=== PATIENT | female | born 1995 | race Caucasian/White ===

== ENCOUNTER 2021-07-08 10:03 | Emergency (ER) | payer OTHER, SELFPAY ==
--- NOTE | 2021-07-08 10:30 | ED.URI ---
HPI - URI/Sore Throat General Chief Complaint: Upper Respiratory Infection Stated Complaint: cough,chest pain when breathing Time Seen by Provider: 07/08/21 10:31 Source: patient and RN notes reviewed Mode of arrival: ambulatory Limitations: no limitations History of Present Illness HPI Narrative: Eloise is a 26-year-old female patient who ambulated into the [facility] today. Patient states she has been treated for pneumonia by her primary care. Patient states she had a Z-Papi for upper respiratory infection last Saturday she was put on cefdinir. She complains of pain under her left breast and back pain when taking a deep breath. She has an autoimmune disorder called FCA. And she takes Ilaris every 3 months. Patient is also taking Tessalon Perles for the cough and states they work well for her. Patient states she feels much better after last Saturday it is the pain with deep inspiration that she is concerned about MD elicited complaint: cough Related Data Home Medications Medication Instructions Recorded Confirmed canakinumab (PF) [Ilaris (PF)] 150 SUBCUT [id number] 07/08/21 Allergies Allergy/AdvReac Type Severity Reaction Status Date / Time amoxicillin Allergy Unknown Verified 04/30/16 03:05 clavulanic acid Allergy Unknown Verified 04/30/16 03:05 sulfamethoxazole Allergy Unknown Unknown Verified 07/08/21 10:37 [From ] trimethoprim [From ] Allergy Unknown Unknown Verified 07/08/21 10:37 Review of Systems Review of Systems: CONSTITUTIONAL: Denies body aches, fever, chills, or sweats. EYES: Denies visual changes, redness, or discharge. ENT: Denies rhinorrhea, congestion, sore throat, or otalgia. CARDIOVASCULAR: +chest pain, denies palpitations, or edema. RESPIRATORY: + cough or dyspnea. GASTROINTESTINAL: Denies abdominal pain, nausea, vomiting, or diarrhea. GENITOURINARY: Denies dysuria or hematuria. SKIN: Denies rash, itching, or wounds. MUSCULOSKELETAL: Denies back pain, joint pain, or myalgia. NEUROLOGIC: Denies headache, numbness, tingling, or weakness. PSYCH: Denies depression or anxiety. All systems reviewed & are unremarkable except as noted in HPI and below PMFSH Comments At time of signature, I have reviewed and agree with nursing past medical, surgical, social and family history unless otherwise noted. Please see nursing chart for further information. There is no relevant family history pertinent to the presenting complaint Exam Narrative: GENERAL: Well-appearing, well-nourished, and in no acute distress. HEAD: Normocephalic, atraumatic. EYES: EOMI. No redness or drainage. Conjunctivae normal. ENT: Mucous membranes pink and moist. Nares clear. No rhinorrhea. TMs normal bilaterally. Throat without erythema or edema. 3-4+ tonsils are noted. Uvula midline. NECK: Normal AROM. Supple. No lymphadenopathy. CHEST: No respiratory distress. Clear to auscultation. MUSCULOSKELETAL: No bony tenderness. EXTREMITIES: Normal range of motion. No edema. SKIN: Warm, dry, no rash. Capillary refill normal. Normal skin turgor. NEURO: No focal deficits. Alert and oriented x3. Gait steady. PSYCH: Normal affect. No signs of depression or anxiety. Course Course Emergency Course: Patient is currently been treated for left lower lobe pneumonia with cefdinir. Patient states she is doing much better. Patient complains of pain with deep inspiration. Patient had pneumonia last March as well developed same symptoms of pleurisy. She was put on a Dosepak and anti-inflammatories and did well. Level of Care: [facility] Visit MDM - URI/Sore Throat MDM Narrative Medical decision making narrative: Patient will be diagnosed with pleurisy. Patient has pain with deep inspiration. Patient's lungs are clear. Patient will be treated with anti-inflammatories and a Medrol Dosepak. Patient to follow-up with her primary care doctor as scheduled next week. Differential Diagnosis Differential diagnosis: Likely up
[2021-07-08 10:34] VITALS: BP 143/98; PULSE 109; RESP 18; TEMP 36.9; O2SAT 100
== END 2021-07-08 10:50 | disposition home or self-care (01) ==
PROVIDERS: Emergency Provider Nurse Practitioner Family
DX: R09.1 Pleurisy (principal); M04.2 Cryopyrin-associated periodic syndromes
CPT/HCPCS: 99213; G0463

== ENCOUNTER 2024-06-03 16:55 | Emergency (ER) | payer BC, SELFPAY ==
--- NOTE | ~2024-06-03 | XR_ITS ---
XR chest 2V Ordering provider: Marcella Acosta APRN History: 29 years Female with . cough dizzy . Comparison: None. FINDINGS: MEDIASTINUM: The cardiac silhouette is not enlarged. LUNGS: No infiltrates, effusions or pneumothorax. OTHER: No free air under the diaphragm. IMPRESSION: No acute cardiopulmonary pathology. Reviewed, dictated and finalized at location A. BOARD MAN
[2024-06-03 17:02] VITALS: BP 155/77; PULSE 98; RESP 16; TEMP 36.8; O2SAT 99
--- NOTE | 2024-06-03 17:14 | ED_ITS ---
HPI - URI/Sore Throat General Chief Complaint: Dizziness Stated Complaint: dizzyness Time Seen by Provider: 06/03/24 17:14 Source: patient, RN notes reviewed and old records reviewed Mode of arrival: ambulatory Limitations: no limitations History of Present Illness HPI Narrative: patient presents with multiple vague complaints. She reports that on she began with some neck pain and body aches, feeling of being off . She now reports a spinning sensation and a heavy sensation of her head. She has not been taking anything for her symptoms. Symptoms have not caused her to fall. 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 She reports she feels as though she is spinning, movement does not seem to affect her symptoms. She does report that she is much more tired than normal. She denies any injury or trauma. She voices no other concerns or complaints at this time. Related Data Home Medications Medication Instructions Recorded Confirmed canakinumab (PF) 150 mg/mL 150 mg subcut [id number] 07/08/21 06/03/24 subcutaneous solution (Ilaris (PF)) semaglutide (weight loss) 0.5 0.5 mg subcut WEEKLY 06/03/24 06/03/24 mg/0.5 mL subcutaneous pen injector Allergies Allergy/AdvReac Type Severity Reaction Status Date / Time clavulanic acid Allergy Mild Hives Verified 06/03/24 17:28 amoxicillin AdvReac Mild Hives Verified 06/03/24 17:28 sulfamethoxazole AdvReac Mild Flushing Verified 06/03/24 17:28 [From ] trimethoprim [From ] AdvReac Mild Flushing Verified 06/03/24 17:28 Review of Systems Review of Systems: All systems reviewed & are unremarkable except as noted in HPI and below Constitutional: Constitutional: Reports no additional constitutional complaints and Reports lethargy ENT: Reports system reviewed and no additional complaints, except as documented, Reports as per HPI and Reports dizziness Cardiovascular: Cardiovascular: Reports no additional cardiovascular complaints Respiratory: Respiratory: Reports no additional respiratory complaints Gastrointestinal: Gastrointestinal: Reports no additional gastrointestinal complaints PMFSH Comments At the time of my signature, I reviewed and agree with the nursing past medical, surgical, social, and family history. There is no relevant family history pertinent to the patient complaint. Exam Const: General: cooperative, no acute distress, alert and awake Orientation/consciousness: oriented to person, oriented to place and oriented to time HENMT: Head: normal to inspection Ears: TM's normal bilaterally and EAC's normal Mouth: Yes moist mucous membranes Resp: Effort & Inspection: normal respiratory effort and able to speak in complete sentences Auscultation: clear to auscultation bilaterally, no crackles, no rales, no rhonchi and no wheezes Cardio: Palpation: normal PMI Rate: regular rate Rhythm: regular rhythm Heart sounds: S1 normal heart sound present and S2 normal heart sound present Neuro: General: oriented to person, oriented to place and oriented to time Cranial nerves: Yes CN's II-XII intact bilaterally Psych: Appearance: grossly normal Thought process: Normal thought process present Insight: Good insight present (Psych) Judgement: Good judgement present (Psych) Course Course Level of Care: [facility] Visit Vital Signs Vital signs: Vital Signs Temperature 98.3 F 06/03/24 17:02 Pulse Rate 98 06/03/24 17:02 Respiratory Rate 16 06/03/24 17:02 Blood Pressure 155/77 H 06/03/24 17:02 Pulse Oximetry 99 06/03/24 17:02 Oxygen Delivery Room Air 06/03/24 17:02 Temperature 98.3 F 06/03/24 17:02 Pulse Rate 98 06/03/24 17:02 Respiratory Rate 16 06/03/24 17:02 Blood Pressure 155/77 H 06/03/24 17:02 Pulse Oximetry 99 06/03/24 17:02 Oxygen Delivery Room Air 06/03/24 17:02 Reviewed MDM - URI/Sore Throat MDM Narrative Medical decision making narrative: patient works as a nurse, communicable illnesses prevalent in the community right now such as pneumonia, COVID, flu have been ruled out. She is able to perform ADLs and go to work despite being dizzy. She is observed ambulating with steady gait. Blood glucose is within normal limits. Patient agrees to try meclizine, if symptoms worsen or do not improve she agrees to go to emergency department immediately. Follow up primary care provider. Discharge instructions reviewed with patient, as well as provided in writing per nursing staff. The instructions also include specific and strict return/GO TO THE ER as well as f/u information. All questions have been answered, and the patient deny any further questions with discharge and discharge plan. Some parts of this dictation were generated by voice recognition software and may contain typographical and/or grammatical inaccuracies. Differential Diagnosis Differential diagnosis: Likely otitis media, viral infection and other (Dizziness, vertigo) Medical Records Attestation: I reviewed the patient's medical records. Lab Data Labs: negative flu, negative COVID Imaging Data My impression: Negative Radiologist's impression: [address] [address] XRay Report Signed Patient: Cele Padilla : 1995 MR#: [id number] Age: 29 Acct:[id number] Loc: [facility] ADM Date: 06/03/24Attending Dr: Ordering Physician: Marcella Acosta FNP Date of Service: 06/03/24 Procedure(s): XR chest 2V Accession Number(s): [id number] cc: Marcella Acosta FNP; RADIO REPAIRMAN PHYSICIAN~ XR chest 2V Ordering provider: Marcella Acosta APRN History: 29 years Female with . cough dizzy . Comparison: None. FINDINGS: MEDIASTINUM: The cardiac silhouette is not enlarged. LUNGS: No infiltrates, effusions or pneumothorax. OTHER: No free air under the diaphragm. IMPRESSION: No acute cardiopulmonary pathology. Reviewed, dictated and finalized at location A. ATRIC INTENSIVE PHYSICIAN Dictated By: Jony Banerjee MD 06/03/241807 Signed By: <Electronically signed by Jony Banereje MD in OV> 06/03/241807 Discharge Plan Discharge Clinical Impression: Dizziness Patient Disposition: Home, Self-Care Condition: Stable Instructions: Antibiotic Form, Dizziness (ED) Additional Instructions: take medications as prescribed. Follow-up with primary care provider emergency department immediately for new or worsening symptoms or current symptoms do not improve Patient Language: Bulgarian Prescriptions: New meclizine 50 mg tablet 50 mg PO TID PRN (Reason: dizziness) Qty: 30 0RF No Action Ilaris (PF) 150 mg/mL Solution 150 mg SUBCUT [id number] semaglutide (weight loss) 0.5 mg/0.5 mL Pen Injector 0.5 mg SUBCUT WEEKLY Rx Instructions: administer weeks 5 through 8 of therapy Follow-up/Referrals: PHYSICIAN,RADIO REPAIRMAN [Primary Care Provider] - Stand Alone Forms: Work/School Release IP Time of Disposition: 18:29
[2024-06-03 17:28] LABS: Glucose Point of Care 87 mg/dl (65-105)
[2024-06-03 17:43] LABS: EDINFLUASCREEN Negative (Negative); EDINFLUBSCREEN Negative (Negative)
[2024-06-03 17:44] LABS: EDCOVIDSCREEN Negative (Negative)
[2024-06-03 18:21] VITALS: BP 132/78
== END 2024-06-03 18:29 | disposition home or self-care (01) ==
PROVIDERS: Emergency Provider Nurse Practitioner Family
DX: R42 Dizziness and giddiness (principal); Z20.822 Contact with and (suspected) exposure to COVID-19
CPT/HCPCS: 71046; 82948; 87426; 87804; 99213; G0463

== ENCOUNTER 2024-08-04 14:46 | Outpatient (CLI) | payer BC, SELFPAY ==
--- NOTE | ~2024-08-04 | MR_ITS ---
EXAMINATION: MR brain/brain stem wo/w con DATE: 08/04/2024 15:20 INDICATION: Headache, unspecified. TECHNIQUE: Magnetic resonance imaging (MRI) of the brain and brainstem was performed without and with 17 mL MultiHance intravenous contrast. COMPARISON: None. FINDINGS: There is no intracranial hemorrhage, acute infarction, or abnormal intracranial mass lesion . The ventricles are normal in size. There is mild mucosal thickening in the paranasal sinuses. The o rbits are normal. The mastoid air cells are normal. IMPRESSION: 1. Normal brain. Reviewed, dictated and finalized at location A. R RESOURCE SPECIALIST IMPRESSION: 1. Normal brain.
== END 2024-08-04 14:47 | disposition home or self-care (01) ==
LOC: MICIMG 14:48
PROVIDERS: PCP Nurse Practitioner; Visit Provider Nurse Practitioner
DX: R51.9 Headache, unspecified (principal); H53.9 Unspecified visual disturbance; R42 Dizziness and giddiness
CPT/HCPCS: 70553; A9577

== ENCOUNTER 2024-10-30 13:13 | Outpatient (CLI) | payer BC, SELFPAY ==
--- OUTSIDE RECORDS SUMMARY | 2024-10-31 13:48 | XMS_ITS | Clinical Summary ---
Author Organization [facility] Address [address] [address] Care Team Providers Care Aquarium Tank Attendant Name Role Phone Ivory Broussard APRN-[facility] Primary Care Provider [phone] Source Comments [facility],non-owned Affiliates and Associated Physician Practices is amultiple site organization consisting of ambulatory clinics and hospital sitesin [place], [place], [place] and [place]. This disclosure is being madepursuant to the Care Everywhere program and may not contain all information available regarding this patient. Last updated 18.[facility] Allergies Active Allergy Reactions Criticality Noted Date Comments Amoxicillin-Pot Clavulanate Unknown 03/06/20 19 Augmentin Urticaria Medium 11/27/2017 Sulfamethoxazole W-Trimethoprim Rash Medium 11/2018 Medications * Be aware that medications may not be up to date on this document. Alwaysverify current medications with the patient. Canakinumab (ILARIS SC) Active diazePAM (Valium) 5 MG tablet TAKE 1 TABLET BY MOUTH EVERY 8 HOURS NEEDED FOR DIZZINESS 4 Active amitriptyline (Elavil) 10 MG tabletIndicatio ns:Ocular migraine,Dizzin ess,Vestibular migraine,Migrai ne with aura and without status migrainosus, not intractable Take 1 (one) tablet by mouth every evening 30 tablet 4 5 Active ISOtretinoin (ACCUTANE PO) 10/29/19 25 Discontinu ed(Tx Complete) Active Problems No known active problems Encounters Date Type Department Care Team Description 10/28/2024 8:00 AM CDT Office Visit [facility] - Neurology [address], [place] [address] Dennise Cowart APRN-CNP Ocular migraine (Primary Dx); Dizziness; Vestibular migraine; Migraine with aura and without status migrainosus, not intractable; Anxiety 10/28/2024 Travel 09/14/2024 Travel from Last 3 Months Family History Relation Name Status Comments Father Alive Mother Alive Social History Tobacco Use Types Packs/Day Years Used Date Smoking Tobacco: Never Smokeless Tobacco: Never Alcohol Use Standard Drinks/Week Comments Not Currently 0 (1 standard drink = 0.6 oz pur e alcohol) Comments Unknown Sex and Gender Information Value Date Recorded Sex Assigned at Not on file Legal Sex Female 10:59 AM CDT Gender Identity Not on file Sexual Orientation Not on file Last Filed Vital Signs Vital Sign Reading Time Taken Comments Blood Pressure 132/84 10/28/2024 7:49 AM CDT Pulse 79 10/28/2024 7:49 AM CDT Temperature 36.8 C (98.2 F) 11/27/2017 12:00 PM CDT Respiratory Rate 18 11/27/2017 12:00 PM CDT Oxygen Saturation 98% 10/28/2024 7:49 AM CDT Inhaled Oxygen Concentration - - Weight 80.3 kg (177 lb) 10/28/2024 7:49 AM CDT Height 170.2 cm (5' 7 ) 10/28/2024 7:49 AM CDT Body Mass Index 27.72 10/28/2024 7:49 AM CDT Plan of Treatment Upcoming Encounters Date Type Department Care Team (Late st Contact Info) Description 03/19/2025 9:00 AM CDT Office Visit [facility] - Neurology [facility] [place] [address] Dennise Cowart APRN-CNP [address] [place] [address] [place] [address] Health Maintenance Due Date Last Done Comments HIV SCREENING 2012 HEPATITIS C SCREENING 05/19/2015 DTAP/TDAP/TD VACCINES (1 - Tdap) 2016 HEPATITIS B VACCINE (1 of 3 - 19+ 3-dose series) 2016 COVID-19 VACCINE ( - 2023- season) 2024 08/09/2020, 07/12/2020 DEPRESSION SCREENING 07/01/2024 INFLUENZA VACCINE (Season Ended) 2025 03/25/2021, 03/21/2019, 03/29/2018, Additional history exists PAP SMEAR 09/28/2025 09/28/2022 ZOSTER VACCINE (1 of 2) 2047 HIB VACCINE Aged Out No longer eligi ble based on patient's age to complete this topic HPV VACCINE Aged Out No longer eligi ble based on patient's age to complete this topic MENINGOCOCCAL (Group B) VACCINE SHARED DECISION-MAKING Aged Out No longer eligible based on patient's age to complete this topic MENINGOCOCCAL GROUPS A/C/Y/W VACCINE Aged Out No longer eligible based on patient's age to complete this topic PNEUMOCOCCAL VACCINE Aged Out No long er eligible based on patient's age to complete this topic Insurance [employer] Care Teams Aquarium Tank Attendant Relationship Specialty Start Date End Date Ivory Broussard, LIGHTING EQUIPMENT OPERATOR-SUPPLY CHAIN DIRECTOR [address] [place] [address] PCP - General Nurse Practitioner 09/14/24
--- OUTSIDE RECORDS SUMMARY | 2024-10-31 13:48 | XMS_ITS | Clinical Summary ---
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1995 Immunizations Immunization Administration Dates Next Due MODERNA COVID-19 (12+) MRNA, LNP-S, PF, 100 MCG/ 0.5 ML DOSE 08/09/2020,07/12/2020 Tdap (Boostrix) 01/29/2024 Family History Medical History Relation Comments Hyperlipidemia Father No Known Problems Mother Relation Status Comments Brother Alive Father Alive Mother Alive Sister Alive Social History Tobacco Use Types Packs/Day Years Used Date Smoking Tobacco: Never Smokeless Tobacco: Never Tobacco Cessation:Counseling Given: No Comments:NO Alcohol Use Standard Drinks/Week Comments Yes 0 (1 standard drink = 0.6 oz pur e alcohol) OCCASIONALLY PHQ-2 Answer Date Recorded PHQ-2 Score - If the patient scores above 3, please move on to questions 3-9 0 12/26/2021 Comments No Sex and Gender Information Value Date Recorded Sex Assigned at Not on file Legal Sex Female 3:42 PM GUT PULLER Gender Identity Not on file Sexual Orientation Not on file Last Filed Vital Signs Vital Sign Reading Time Taken Comments Blood Pressure 150/95 06/03/2024 9:10 PM GUT PULLER Pulse 81 06/03/2024 9:30 PM GUT PULLER Temperature 36.4 C (97.5 F) 06/03/2024 7:40 PM GUT PULLER Respiratory Rate 13 06/03/2024 9:30 PM GUT PULLER Oxygen Saturation 97% 06/03/2024 9:30 PM GUT PULLER Inhaled Oxygen Concentration - - Weight 79.4 kg (175 lb 0.7 oz) 06/03/2024 7:41 P M GUT PULLER Height 170.2 cm (5' 7 ) 06/03/2024 7:40 PM GUT PULLER Body Mass Index 27.42 06/03/2024 7:40 PM GUT PULLER Plan of Treatment Health Maintenance Due Date Last Done Comments Annual Physical 2000 Hepatitis C 2015 COVID-19 Vaccine ( season) 2024 08/09/2020, 07/12/2020 PHQ-2 (Physician [place]) 07/01/2024 Cervical Cancer Screening Pap Smear (Age 21 to 29) Every 3 Years 09/28/2025 09/28/2022 Cervical Cancer Screening 09/28/2025 DTaP, Tdap and Td Vaccines (8 - Td or Tdap) 01/28/2034 01/29/2024, 02/07/2009, 06/01/2002, Additional history exists Hepatitis B Vaccines Completed 03/16/2009, 1995, 1995, Additional history exists HPV Vaccines Completed 12/04/2011, 07/2011, 05/31/2011 Meningococcal Vaccine Completed 09/06/2014, 009 Pneumococcal Vaccine: Pediatrics (0 to 5 Years) and At-Risk Patients (6 to 49 Years) Aged Out 07/14/2021 No longer eligible based on patient's age to complete this topic Meningococcal B Vaccine Aged Out No l onger eligible based on patient's age to complete this topic RSV Immunizations Under 20 Months Aged Out No longer eligible based on patient's age to complete this topic Procedures Procedure Name Priority Date/Time Associated Diagnosis Comments CYTOPATH CERV/VAG THIN LAYER Routine 09/28/2022 10:01 AM CDT Cervical cancer screening from Last 3 Months or Most Recently Relevant to Health Maintenance Results * Cytopath Cerv/Vag Thin Layer (09/28/2022 10:01 AM CDT) THIN PREP PAP [facility] [address] [place] [address] Department of Pathology Pathology Report CERVICAL/VAGINAL PAP SMEAR REPORT Name: CELE PADILLA Age: 11 1995 (Age: 27) Location: [facility] Sex: F Collected Date: 09/28/2022 [facility] #: [id number] Date Received: 10/02/2022 Date Reported: 10/04/2022 Provider: DOMINGA KENNEDY MD INTERPRETATION CERVICAL/ENDOCERVI GILSON: SATISFACTORY FOR EVALUATION. ENDOCERVICAL/TRANS FORMATION ZONE COMPONENT ABSENT. NEGATIVE FOR INTRAEPITHELIAL LESION OR MALIGNANCY. Electronically Signed Out By EVONNE Osorio (ASCP) CLINICAL HISTORY SCREENING PAP TEST ThinPrep Pap Test with HR HPV testing in patient > 21 years with ASC-US diagnosis. Date of Last Menstrual Period: 09/16/22 Menstrual Status: Regular SPECIMEN SUBMITTED CERVICAL/ENDOCERVI GILSON Specimen Received:1 Thin Prep Vial, Image Assisted Pap (SMD) Please note: The Pap smear is not a diagnostic test. It is a screening test. Negative results on combined screening (Pap test and HPV-DNA) have a high negative predictive value (99.1-100 percent) for cervical cancer. The pap test is not effective in detecting cervical adenocarcinoma. [facility] 09/28/2022 10:0 1 AM CDT 10/02/2022 10:01 AM CDT Comment:CERVICAL/ENDOCERVICA L us Dominga Arguello MD PATHOLOGY/CYTOLOGY ORDERABLES Final Result [facility] [address] [place] [address], from Last 3 Months or Most Recently Relevant to Health Maintenance Insurance [facility] Care Teams Digital Computer Operator Relationship Specialty Start Date End Date Pamela Kennedy MD PCP - General FAMILY PRACTICE 12/15/21
--- NOTE | 2024-11-10 17:14 | WPDHOLTEREM ---
Holter/Event Monitor Holter/Event Monitor Date of procedure: 10/30/24 Holter/Event Procedure: 3-7 Day Holter Monitor Indications: Palpitations Conclusion: 1. 3 days holter monitor on 10/30/24. 2. Underlying rhythm is sinus rhythm. HR range 47-156 bpm; average HR 82 bpm. HR at 47 bpm was on 10/31/24 at 5:36 am. HR at 156 bpm was on 11/02/24 at 5:32 am. 3. There are rare premature supraventricular complexes. No supraventricular tachycardia. 4. There are rare premature ventricular complexes. No ventricular tachycardia. 5. No significant pauses greater than 3 seconds. 6. Patient reports 9 episodes of symptoms of irregular beats, fluttering which demonstrate sinus rhythm, HR range 78-114 bpm with 1 episode with PVC.
== END 2024-10-30 13:14 | disposition home or self-care (01) ==
LOC: ANHCARD 13:15
PROVIDERS: PCP Internal Medicine; Visit Provider Nurse Practitioner
DX: I49.1 Atrial premature depolarization (principal); I49.3 Ventricular premature depolarization; R00.2 Palpitations
CPT/HCPCS: 93242

== ENCOUNTER 2025-02-16 16:57 | Emergency (ER) | payer BC, SELFPAY ==
--- OUTSIDE RECORDS SUMMARY | 2025-02-16 17:00 | XMS_ITS | Clinical Summary ---
Author Organization [facility] Address [address] [place] [address] Care Team Providers Care Management Analyst Name Role Phone Aarti Ivory Sanford APRN-[facility] Primary Care Provider [phone] Source Comments [facility],non-owned Affiliates and Associated Physician Practices is amultiple site organization consisting of ambulatory clinics and hospital sitesin [place], [place], [place] and [place]. This disclosure is being madepursuant to the Care Everywhere program and may not contain all information available regarding this patient. Last updated 18.[facility] Allergies Active Allergy Reactions Criticality Noted Date [...] DIZZINESS 4 Active amitriptyline (Elavil) 10 MG tabletIndication s:Ocular migraine,Dizzine ss,Vestibular migraine,Migrain e with aura and without status migrainosus, not intractable Take 1 (one) tablet by mouth every evening 30 tablet 4 5 Active Active Problems No known active problems Encounters Date Type Department Care Team Description 12/14/2024 Travel from Last 3 Months Family History [...] 7:49 AM CDT Height 170.2 cm (5' 7) 10/28/2024 7:49 AM CDT Body Mass Index 27.72 10/28/2024 7:49 AM CDT Plan of Treatment Upcoming Encounters Date Type Department Care Team (Late st Contact Info) Description 03/19/2025 9:00 AM CDT Office Visit [facility] - Neurology [address] [facility] [place] [phone] Dennise Cowart, PLANT PROTECTION OFFICER-WARP PLACER [address] [place] [address] [place] [id number] Health Maintenance Due Date Last Done Comments HIV SCREENING 2012 HEPATITIS C SCREENING 05/19/2015 DTAP/TDAP/TD VACCINES (1 - Tdap) 2016 HEPATITIS B VACCINE (1 of 3 - 19+ 3-dose series) 2016 COVID-19 VACCINE (3 - 2023- season) 2024 08/09/2020, 07/12/2020 HPV VACCINE (1 - 3-dose SCDM series) 2024 DEPRESSION SCREENING 07/01/2024 INFLUENZA VACCINE (#1) 2025 , 03/21/2019, 03/29/2018, Additional history exists PAP SMEAR [...] patient's age to complete this topic Insurance ANTH Care Teams Management Analyst Relationship Specialty Start Date End Date Ivory Broussard APRN-[facility] [address] [place], [place] [id number] PCP - General Nurse Practitioner 09/14/24
--- OUTSIDE RECORDS SUMMARY | 2025-02-16 17:01 | XMS_ITS | Clinical Summary ---
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1995 Immunizations Immunization Administration Dates Next Due [...] on file Legal Sex Female 3:42 PM SURVEILLANCE MONITOR Gender Identity Not on file Sexual Orientation Not on file Last Filed Vital Signs Vital Sign Reading Time Taken Comments Blood Pressure 150/95 06/03/2024 9:10 PM SURVEILLANCE MONITOR Pulse 81 06/03/2024 9:30 PM SURVEILLANCE MONITOR Temperature 36.4 C (97.5 F) 06/03/2024 7:40 PM SURVEILLANCE MONITOR Respiratory Rate 13 06/03/2024 9:30 PM SURVEILLANCE MONITOR Oxygen Saturation 97% 06/03/2024 9:30 PM SURVEILLANCE MONITOR Inhaled Oxygen Concentration - - Weight 79.4 kg (175 lb 0.7 oz) 06/03/2024 7:41 P M SURVEILLANCE MONITOR Height 170.2 cm (5' 7) 06/03/2024 7:40 PM SURVEILLANCE MONITOR Body Mass Index 27.42 06/03/2024 7:40 PM SURVEILLANCE MONITOR Plan of Treatment Health Maintenance Due Date Last Done Comments Annual Physical 2000 Hepatitis C 2015 COVID-19 Vaccine ( season) 2024 08/09/2020, 07/12/2020 PHQ-2 (Physician [place]) 07/01/2024 Cervical Cancer Screening Pap Smear (Age [...] (09/28/2022 10:01 AM CDT) THIN PREP PAP [facility] [address] [place] [address] Department of Pathology Pathology Report CERVICAL/VAGINAL PAP SMEAR REPORT Name: CELE PADILLA Age: 11 1995 (Age: 27) Location: [facility] Sex: F Collected Date: 09/28/2022 [facility] #: [id number] Date Received: 10/02/2022 Date Reported: 10/04/2022 Provider: [...] is not effective in detecting cervical adenocarcinoma. [facility] 09/28/2022 10:0 1 AM CDT 10/02/2022 10:01 AM CDT Comment:CERVICAL/ENDOCERVICA L us Dominga Arguello MD PATHOLOGY/CYTOLOGY ORDERABLES Final Result [facility] [address] [place] [address], from Last 3 Months or Most Recently Relevant to Health Maintenance Insurance [facility] Care Teams Song Writer Relationship Specialty Start Date End Date Pamela Kennedy MD PCP - General FAMILY PRACTICE 12/15/21
[2025-02-16 17:04] VITALS: BP 143/79; PULSE 76; RESP 18; TEMP 36.4; O2SAT 100
[2025-02-16 17:21] LABS: EDUAAPPEAR Cloudy; EDUABILI Negative (Negative); EDUABLOOD 1+ (Negative); EDUACOLOR1 Light/Pale; EDUAGLUCOSE Negative (Negative); EDUAKETONE Negative (Negative); EDUALEUKO 1+ (Negative); EDUANITRATE Negative (Negative); EDUAPH 6.5; EDUAPROTEIN Negative (Negative); EDUASPGRAVITY 1.005; EDUAUROBILI 0.2
--- NOTE | 2025-02-16 17:27 | ED_ITS ---
HPI - Female Genitourinary General Chief complaint: Urogenital-Female Stated complaint: UTI Time Seen by Provider: 02/16/25 17:20 Source: patient and RN notes reviewed Mode of arrival: ambulatory Limitations: no limitations History of Present Illness HPI Narrative: 29-year-old female presents Express Care complaining of urinary symptoms since this morning. Patient reports having dysuria, increased frequency, hesitancy, suprapubic pain. Patient denies any fevers, back pain, flank pain, body aches, chills, nausea, vomiting, diarrhea, or blood in her urine. Patient denies any vaginal discharge, pelvic pain vaginal bleeding, or any concerns for STIs. Patient has not taken anything [id number] for symptoms. Patient reports a history of recurrent UTIs. Patient has seen Urology in the past and had unr emarkable workup. Patient did tele health visit this morning was prescribed Keflex the pharmacy would not fill it because she had an allergy to Augmentin and they were unable to get all the provider the prescribed medication earlier this morning. Patient is unsure if she has an allergy to cephalosporins reports having hives when taking Augmentin. Related Data Home Medications ?Medication ?Instructions ?Recorded ?Confirmed ?Last Taken ?Type canakinumab (PF) 150 mg/mL 150 mg subcut [id number] 02/1909/29/24 Unknown History subcutaneous solution (Ilaris (PF)) Allergies Allergy/AdvReac Type Severity Reaction Status Date / Time amoxicillin Allergy Intermediate Hives Verified 02/16/25 17:26 clavulanic acid Allergy Mild Hives Verified 02/16/25 17:26 sulfamethoxazole (From AdvReac Mild Flushing Verified 02/16/25 17:26 Septra) trimethoprim (From Septra) AdvReac Mild Flushing Verified 02/16/25 17:26 Review of Systems Review of Systems: CONSTITUTIONAL: Denies fever, chills, body aches, or sweats. EYES: Denies visual changes, redness, or discharge. ENT: Denies rhinorrhea, congestion, sore throat, or otalgia. CARDIOVASCULAR: Denies chest pain, palpitations, or edema. RESPIRATORY: Denies cough or dyspnea. GASTROINTESTINAL: Positive for suprapubic pain. Negative for nausea, vomiting, or diarrhea. GENITOURINARY: Positive for dysuria, hesitancy, increased frequency. Negative for hematuria, vaginal discharge, pelvic pain, vaginal bleeding. SKIN: Denies rash or itching. MUSCULOSKELETAL: Denies back pain, joint pain, or myalgia. NEUROLOGIC: Denies headache, numbness, or weakness. PSYCHIATRIC: Denies anxiety or depression. All other systems reviewed are negative, except as documented in HPI. [facility] Social History Social History Smoking status: Never smoker Alcohol intake: current Alcohol use details: occasionally Substance use: never Substance use type: does not use Do You Feel Safe in your Home?: Yes Lack of Transportation: YES Lack of Food: Never True Current Housing: I Have Housing Concerned About Future Housing: No Difficulty Paying Gas/Electric Bills: No Difficulty Paying for Meds: No Currently Unemployed: No Education: Bachelor's Degree Difficulty w/ Childcare or Family Care: No Comments At the time of my signature, I reviewed and agree with the nursing past medical, surgical, social, and family history. There is no relevant family history pertinent to the patient complaint. Exam Narrative: GENERAL: This is a well-nourished, well-developed adult, in no apparent distress. They are non ill-appearing, nontoxic appearing. HEAD: normocephalic, atraumatic. EYES: Sclera clear/white. Vision is grossly intact. Conjunctiva normal bilaterally. Extraocular movements intact. EARS: External ears normal,Hearing grossly intact. NOSE: External nose normal THROAT: Mucous membranes moist NECK: Normal range of motion CARDIOVASCULAR: Regular rate and rhythm. Normal S1-S2. No clicks, gallops, rubs, murmurs. RESPIRATORY: Respiratory rate normal, respiratory effort nonlabored, no respiratory distress. Lung sounds clear to auscultation throughout. Lung sounds equal bilaterally. No adventitious lung sounds. GASTROINTESTINAL: Abdomen soft, flat, non-tender, nondistended. Bowel sounds are active. No hepato-splenomegaly, or palpable masses. No guarding or rigidity. No rebound tenderness. SKIN: warm, Dry, intact with no suspicious lesions or rash, good texture and turgor. NEURO: awake, alert, and oriented to person, place and time. There were no obvious focal neurologic abnormalities. EXTREMITIES: No joint tenderness, effusion, or edema noted. BACK: Nontender without deformity. No CVA tenderness. Course Course Emergency Course: Portions of this record may have been created with voice recognition software Level of Care: Express Care Visit Vital Signs Vital signs: Vital Signs Temperature 97.5 F L 02/16/25 17:04 Pulse Rate 76 02/16/25 17:04 Respiratory Rate 18 02/16/25 17:04 Blood Pressure 143/79 H 02/16/25 17:04 Pulse Oximetry 100 02/16/25 17:04 Oxygen Delivery Room Air 02/16/25 17:04 Temperature 97.5 F L 02/16/25 17:04 Pulse Rate 76 02/16/25 17:04 Respiratory Rate 18 02/16/25 17:04 Blood Pressure 143/79 H 02/16/25 17:04 Pulse Oximetry 100 02/16/25 17:04 Oxygen Delivery Room Air 02/16/25 17:04 MDM - Female Genitourinary MDM Narrative Medical decision making narrative: Urine dipstick shows evidence of urinary tract infection. Symptoms likely cystitis. Urine culture pending. Patient is unsure if she can take Keflex, will go ahead and send a prescription for Macrobid. Discussed physical exam f indings. Advised supportive measures and signs/symptoms to go to the ER. Pt is appropriate for outpt treatment and f/u. Differential Diagnosis Differential diagnosis: Likely urinary tract infection, cystitis and other (Pyelonephritis) Lab Data Attestation: I reviewed the patient's lab results. Labs: Lab Results 02/16/25 Range/Units 17:19 POC Urine Color Light/pale POC Urine Clarity Cloudy POC Urine pH 6.5 POC Ur Specif [place] 1.005 POC Urine Protein Negative (Negative) POC Ur Glucose (UA) Negative (Negative) POC Urine Ketones Negative (Negative) POC Urine Blood 1+ (Negative) POC Urine Nitrite Negative (Negative) POC Urine Bilirubin Negative (Negative) POC Urine Urobilinogen 0.2 POC U Leukocyte Esteras 1+ (Negative) Discharge Plan Discharge Clinical Impression: Urinary tract infection Qualifiers: Urinary tract infection type: site unspecified Hematuria presence: with hematuria Qualified Code(s): N39.0 - Urinary tract infection, site not specified Patient Disposition: Home Condition: Stable Instructions: Antibiotic Form, Urinary Tract Infection in Women (ED) Additional Instructions: Take the antibiotic as prescribed The urine will be sent of for a culture to identify what type of bacteria is causing your infection. If the culture shows that the antibiotic will not get rid of your infection, you will be notified and a new antibiotic will be called in for you. Increase water intake you will need to follow up with your PCP 3-5 days. Go to the ER for any worsening symptoms, abdominal pain, fevers, nausea, vomiting, or any other concerns Patient Language: Albanian Prescriptions: New nitrofurantoin monohyd/m-cryst [Macrobid] 100 mg capsule 100 mg PO Q12H 5 Days Qty: 10 0RF Rx Instructions: must administer with a meal/food No Action Ilaris (PF) 150 mg/mL Solution 150 mg SUBCUT [id number] sumatriptan succinate [Imitrex] 25 mg tablet See Rx Instructions PO .COMPLEX Qty: 9 0RF Rx Instructions: take 1 tab at onset of headache; if no relief may repeat 1 tab after at least 2 hrs; max = 4 tabs/24 hr PO cholecalciferol (vitamin D3) 1,250 mcg (50,000 unit) capsule 1,250 mcg PO WEEKLY Qty: 8 0RF Follow-up/Referrals: Ivory Broussard MILL HOUSE SUPERVISOR [Primary Care Provider, Internal Medicine] Time of Disposition: 17:26
== END 2025-02-16 17:30 | disposition home or self-care (01) ==
PROVIDERS: PCP Nurse Practitioner
DX: N39.0 Urinary tract infection, site not specified (principal)
CPT/HCPCS: 81003; 87086; 99213; G0463

== ENCOUNTER 2025-05-18 09:46 | Emergency (ER) | payer BC, SELFPAY ==
--- NOTE | 2025-05-18 09:48 | ED_ITS ---
HPI - Female Genitourinary General Chief complaint: Urogenital-Female Stated complaint: UTI Time Seen by Provider: 05/18/25 09:49 Source: patient Mode of arrival: ambulatory Limitations: no limitations History of Present Illness HPI Narrative: patient is a 29-year-old female who presents with burning with urination since last night. Denies any fever, chills, nausea, vomiting, diarrhea. Denies any concern for or STI. Has seen urologist in the past. MD elicited complaint: dysuria Related Data Home Medications ?Medication ?Instructions ?Recorded ?Confirmed ?Last Taken ?Type canakinumab (PF) 150 mg/mL 150 mg subcut [id number] 02/1905/14/25 Unknown History subcutaneous solution (Ilaris (PF)) multivitamin 1 tablet PO DAILY 04/23/25 1 07/14/24 Unknown History magnesium 200 mg tablet 200 mg PO DAILY 05/14/25 Unknown History Allergies Allergy/AdvReac Type Severity Reaction Status Date / Time amoxicillin Allergy Intermediate Hives Verified 05/18/25 09:48 clavulanic acid Allergy Mild Hives Verified 05/18/25 09:48 sulfamethoxazole (From AdvReac Mild Flushing Verified 05/18/25 09:48 Septra) trimethoprim (From Septra) AdvReac Mild Flushing Verified 05/18/25 09:48 Review of Systems Review of Systems: All systems reviewed & are unremarkable except as noted in HPI and below Constitutional: Constitutional: Denies chills, Denies fever(s), Denies headache(s), Denies malaise and Denies weakness Eyes: Eyes: Denies change in vision, Denies eye discharge and Denies irritation ENT: Denies otalgia, Denies headache(s), Denies nasal congestion, Denies nasal discharge, Denies sinus pain and Denies sore throat Cardiovascular: Cardiovascular: Denies chest pain, Denies edema, Denies palpitations and Denies dyspnea Respiratory: Respiratory: Denies cough and Denies dyspnea Gastrointestinal: Gastrointestinal: Denies abdominal pain, Denies diarrhea, Denies nausea and Denies vomiting Genitourinary: Genitourinary: Denies hematuria, Denies nocturia, Reports dysuria, Denies flank pain and Denies urinary urgency Musculoskeletal: Musculoskeletal: Denies back pain and Denies numbness Integumentary/Breasts: Skin/Breast: Denies pruritus and Denies rash Neurologic: Denies headache(s), Denies numbness and Denies weakness Psychiatric: Psychiatric: Reports no additional psychiatric complaints Endocrine: Endocrine: Denies palpitations PMFSH Social History Social History Smoking status: Never smoker Alcohol intake: current Alcohol use details: occasionally Substance use: never Substance use type: does not use Do You Feel Safe in your Home?: Yes Lack of Transportation: YES Lack of Food: Never True Current Housing: I Have Housing Concerned About Future Housing: No Difficulty Paying Gas/Electric Bills: No Difficulty Paying for Meds: No Currently Unemployed: No Education: Bachelor's Degree Difficulty w/ Childcare or Family Care: No Comments At time of signature, agree with nursing past medical, surgical, social and family history. There is no relevant family history pertinent to the presenting complaint. Exam Const: General: cooperative, healthy appearing, comfortable, no acute distress and well nourished Nutritional Appearance: well nourished Orientation/consciousness: patient oriented x3 HENMT: Head: normocephalic and atraumatic Ears: external ears normal Face/Nose/Sinus: Normal external nose present, Normal nares present and normal facial exam Face and sinus: normal facial exam Eyes: General: appearance normal, both eyes and all related structures Pupils: Equal, round and reactive pupils present EOM: EOMs intact bilaterally Neck: Neck: normal visual inspection, full ROM and supple Chest: Chest palpation & inspection: normal inspection of the chest Resp: Effort & Inspection: normal respiratory effort and able to speak in complete sentences Cardio: Rate: regular rate Rhythm: regular rhythm GI: Inspection: normal to inspection GI Palp: No abdominal tenderness and Yes Soft to palpation : General: Yes no CVA tenderness Back/Spine/Pelvis: Back: no CVA tenderness Skin: General skin exam: normal color and no rashes or lesions noted Neuro: General: patient oriented x3 and moves all extremities Cranial nerves: Yes Equal, round and reactive pupils present Extrem: General: normal to inspection and full ROM Psych: Appearance: grossly normal and well kempt Course Course Emergency Course: Patient is aware of diagnosis, understands and agrees to treatment plan. Anticipatory guidance given. Patient agrees to follow-up as directed and is aware of reasons to seek care at the emergency department. Portions of this record may have been created with voice recognition software Level of Care: Express Care Visit Vital Signs Vital signs: Vital Signs Temperature 36.3 C L 05/18/25 09:52 Pulse Rate 65 05/18/25 09:52 Respiratory Rate 18 05/18/25 09:52 Blood Pressure 136/76 05/18/25 09:52 Pulse Oximetry 100 05/18/25 09:52 Oxygen Delivery Room Air 05/18/25 09:52 Temperature 36.3 C L 05/18/25 09:52 Pulse Rate 65 05/18/25 09:52 Respiratory Rate 18 05/18/25 09:52 Blood Pressure 136/76 05/18/25 09:52 Pulse Oximetry 100 05/18/25 09:52 Oxygen Delivery Room Air 05/18/25 09:52 Reviewed MDM - Female Genitourinary MDM Narrative Medical decision making narrative: Exam findings and UA show probable UTI will treat with antibiotics. Pt well hydrated appearing, in no respiratory distress, hemodynamically stable. The patient is stable at time of discharge the clinical impression was discussed and the patient was given the opportunity to ask questions, which were addressed as completely as possible given the information available at present. Antici patory guidance and return to care precautions were discussed and the importance of primary care follow-up was stressed and encouraged. The patient voiced understanding of the plan, indications to return, and the need for follow-up. Exam findings show no acute concerns or changes Patient is appropriate for outpatient treatment and follow-up Differential Diagnosis Differential diagnosis: Likely urinary tract infection, bacterial vaginosis, trichomoniasis, cervicitis, vaginitis and cystitis Medical Records Attestation: I reviewed the patient's medical records. Lab Data Attestation: I reviewed the patient's lab results. Labs: Lab Results 05/18/25 Range/Units 09:57 POC Urine Color Yellow POC Urine Clarity Clear POC Urine pH 6.0 POC Ur Specif [place] 1.005 POC Urine Protein Negative (Negative) POC Ur Glucose (UA) Negative (Negative) POC Urine Ketones Negative (Negative) POC Urine Blood Trace (Negative) POC Urine Nitrite Negative (Negative) POC Urine Bilirubin Negative (Negative) POC Urine Urobilinogen 0.2 POC U Leukocyte Esteras 1+ (Negative) Discharge Plan Discharge Clinical Impression: Urinary tract infection Qualifiers: Urinary tract infection type: acute cystitis Hematuria presence: with hematuria Qualified Code(s): N30.01 - Acute cystitis with hematuria Patient Disposition: Home Condition: Stable Instructions: Urinary Tract Infection in Women (ED) Additional Instructions: We will send a urine culture to the lab, based on your symptoms and urine dip we will start treatment today. If culture comes back and bacteria is not susceptible to antibiotic, your prescription may change. Your symptoms should improve within a day of starting antibiotics, but you should finish all the antibiotic pills you get. Otherwise your infection might come back Continue with increased water intake. Take Tylenol or ibuprofen as needed for pain or fever. Follow-up with primary care provider for urine recheck or see ER visit if condition worsens with high fever, nausea, vomiting, severe back pain Patient Language: South Korean Prescriptions: New nitrofurantoin monohyd/m-cryst 100 mg capsule 100 mg PO Q12H 5 Days Qty: 10 0RF Rx Instructions: must administer with a meal/food No Action Ilaris (PF) 150 mg/mL Solution 150 mg SUBCUT [id number] multivitamin Tablet 1 tablet PO DAILY venlafaxine 37.5 mg capsule,extended release 24hr 37.5 mg PO DAILY Qty: 90 0RF magnesium 200 mg tablet 200 mg PO DAILY Follow-up/Referrals: Ivory Broussard APRN [Primary Care Provider, Internal Medicine] - 3 Days Time of Disposition: 10:06
[2025-05-18 09:52] VITALS: BP 136/76; PULSE 65; RESP 18; TEMP 36.3; O2SAT 100
[2025-05-18 09:59] LABS: EDUAAPPEAR Clear; EDUABILI Negative (Negative); EDUABLOOD Trace (Negative); EDUACOLOR1 Yellow; EDUAGLUCOSE Negative (Negative); EDUAKETONE Negative (Negative); EDUALEUKO 1+ (Negative); EDUANITRATE Negative (Negative); EDUAPH 6.0; EDUAPROTEIN Negative (Negative); EDUASPGRAVITY 1.005; EDUAUROBILI 0.2
== END 2025-05-18 10:07 | disposition home or self-care (01) ==
PROVIDERS: Emergency Provider Nurse Practitioner Family; PCP Nurse Practitioner
DX: N30.01 Acute cystitis with hematuria (principal)
CPT/HCPCS: 81003; 87086; 99213; G0463

== ENCOUNTER 2025-05-22 11:03 | Emergency (ER) | payer BC, SELFPAY ==
--- OUTSIDE RECORDS SUMMARY | 2025-05-22 11:07 | XMS_ITS | Clinical Summary ---
Author Organization [facility] Address [address] [place] [address] Care Team Providers Care General Dentist/Owner Name Role Phone Pamela Kennedy MD Primary Care Provider [phone] Allergies Active Allergy Reactions Criticality Noted Date Comments Amoxicillin-Pot Clavulanate Unknown 11/26/19 22 Sulfamethoxazole-Trimethoprim Rash Low 2023 Medications Multiple Vitamin (MULTIVITAMIN ADULT OR) 07/11/2018 Active Active Problems Problem Noted Date Diagnosed Date Familial cold autoinflammatory syndrome 05/11/19 97 Immunizations Immunization Administration Dates Next Due MODERNA [...] on file Legal Sex Female 3:42 PM WARDROBE COORDINATOR Gender Identity Not on file Sexual Orientation Not on file Last Filed Vital Signs Vital Sign Reading Time Taken Comments Blood Pressure 150/95 06/03/2024 9:10 PM WARDROBE COORDINATOR Pulse 81 06/03/2024 9:30 PM WARDROBE COORDINATOR Temperature 36.4 C (97.5 F) 06/03/2024 7:40 PM WARDROBE COORDINATOR Respiratory Rate 13 06/03/2024 9:30 PM WARDROBE COORDINATOR Oxygen Saturation 97% 06/03/2024 9:30 PM WARDROBE COORDINATOR Inhaled Oxygen Concentration - - Weight 79.4 kg (175 lb 0.7 oz) 06/03/2024 7:41 P M WARDROBE COORDINATOR Height 170.2 cm (5' 7) 06/03/2024 7:40 PM WARDROBE COORDINATOR Body Mass Index 27.42 06/03/2024 7:40 PM WARDROBE COORDINATOR Plan of Treatment Health Maintenance Due Date Last Done Comments Annual Physical 2000 Hepatitis C 2015 PHQ-2 (Physician [place]) 07/01/2024 COVID-19 Vaccine ( season) 2025 08/09/2020, 07/12/2020 Influenza Adult (#1) 2025 03/25/2021, 03/21/2019, 03/29/2018, Additional history exists Cervical Cancer Screening Pap Smear (Age 23 [...] on patient's age to complete this topic Hepatitis A Vaccines Aged Out No long er eligible based [...] (09/28/2022 10:01 AM CDT) THIN PREP PAP [facility] [address] [place] [address] Department of Pathology Pathology Report CERVICAL/VAGINAL PAP SMEAR REPORT Name: CELE PADILLA Age: 11 1995 (Age: 27) Location: [facility] Sex: F Collected Date: 09/28/2022 Hospital #: [id number] Date Received: 10/02/2022 Date Reported: 10/04/2022 Provider: [...] not effective in detecting cervical adenocarcinoma. [facility] 09/28/2022 10:0 1 AM CDT 10/02/2022 10:01 AM CDT Comment:CERVICAL/ENDOCERVICA L us Dominga Arguello MD PATHOLOGY/CYTOLOGY ORDERABLES Final Result [facility] [address] [place] [address], from Last 3 Months or Most Recently Relevant to Health Maintenance Insurance [facility] Care Teams General Dentist/Owner Relationship Specialty Start Date End Date Pamela Kennedy MD PCP - General FAMILY PRACTICE 12/15/21
--- OUTSIDE RECORDS SUMMARY | 2025-05-22 11:07 | XMS_ITS | Clinical Summary ---
Author Organization [facility] Address [address] [place] [id number] Care Team Providers Care Energy Efficient Site Manager Name Role Phone Unavailable Primary Care Provider Unavailabl e Allergies Active Allergy Reactions Criticality Noted Date Comments Amoxicillin-Pot Clavulanate Unknown,Hives High 11/27 Sulfamethoxazole-Trimethoprim Rash Medium 2018 Medications canakinumab, PF, (ILARIS) 150 mg/mL Solution 150 mg one time only. Active Active Problems No known active problems Encounters Date Type Department Care Team Description 04/21/2025 External Device Data [facility]STRA[facility] Provider, Abstract 03/23/2025 External Device Data [facility] Provider, Abstract 03/23/2025 External Device Data [facility] Provider, Abstract 03/23/2025 External Device Data [facility] Provider, Abstract 03/19/2025 10:10 AM CDT [facility] [address] [place] [address] Julee Knowles MD Well woman exam with routine gynecological exam (Primary Dx) from Last 3 Months Social History Tobacco Use Types Packs/Day Years Used Date Smoking Tobacco: Never Smokeless Tobacco: Never Tobacco Cessation:Counseling Given: Not Answered Alcohol Use Standard Drinks/Week Comments Yes 0 (1 standard drink = 0.6 oz pur e alcohol) social Comments No Sex and Gender Information Value Date Recorded Sex Assigned at Not on file Legal Sex Female 10:16 AM CDT Gender Identity Not on file Sexual Orientation Not on file Last Filed Vital Signs Vital Sign Reading Time Taken Comments Blood Pressure 130/82 03/19/2025 10:28 AM CDT Pulse - - Temperature - - Respiratory Rate - - Oxygen Saturation - - Inhaled Oxygen Concentration - - Weight 77.6 kg (171 lb) 03/19/2025 10:28 AM CDT Height 172.7 cm (5' 8) 03/19/2025 10:28 AM CDT Body Mass Index 26 03/19/2025 10:28 AM CDT Plan of Treatment Upcoming Encounters Date Type Department Care Team (Late st Contact Info) Description 03/25/2026 9:40 AM CDT [facility] [id number] [facility] [address] [place] [address] [place] [address] [place] [address] Health Maintenance Due Date Last Done Comments INFLUENZA VACCINE (#1) 2025 , 03/21/2019, 03/29/2018, Additional history exists COVID-19 Vaccine (2024-2 6 season) 2025 08/09/2020, 07/12/2020 CERVICAL CANCER SCREENING 03/19/2028 PAP SMEAR 03/19/2028 03/19/2025, 09/28/2022 HPV/Cotest (21-29) 03/19/2030 03/19/2025 HPV/Cotest (30-65) 03/19/2030 03/19/2025 DTAP/TDAP/TD VACCINES (8 - T d or Tdap) 01/28/2034 01/29/2024, 02/07/2009, 06/01/2002, Additional history exists HEPATITIS B VACCINES Completed 03/16/2009, 1997, 1997, Additional history exists HPV VACCINES Completed 12/04/2011, 07/2011, 05/31/2011 Procedures Procedure Name Priority Date/Time Associated Diagnosis Comments CERV/VAG CYTO SCREEN PAP RLFX HPV Routine 03/19/2025 12:00 AM CDT Well woman exam with routine gynecological exam from Last 3 Months Results * CERV/VAG CYTO SCREEN PAP RLFX HPV (03/19/2025 12:00 AM CDT) Pathologist [facility] INFORMATION Kerry Buchanan Comment:None given LAST MENSTRUAL PERIOD Kerry Buchanan Comment:NONE GIVEN PREV PAP: Kerry Buchanan Comment:NONE GIVEN PREV BX: Kerry Buchanan Comment:NONE GIVEN SOURCE Kerry Buchanan Comment:ENDOCERVIX ADEQUACY: Kerry Buchanan Comment: Satisfactory for evaluation. Endocervical/transformation zone component present. Age and/or menstrual status not provided PAP INTERP Kerry Buchanan Comment: Cytology Results: Negative for intraepithelial lesion or malignancy. COMMENT (PAP TEST) Q uest RaeFlorence Buchanan Comment: This Pap test has been evaluated with the ThinPrep(R) Imaging System. LENS INSPECTOR: Belén Buchanan Comment: LMT, CT(ASCP) CT Screening Location: [place] [address] [address] [place] [address] [address] CLIA: [id number] Slide preparation performed at: [facility], [address] [place] [address], [id number] CLIA: [id number] EXPLANATORY NOTE Que st Santana Buchanan Comment: EXPLANATORY NOTE: The Pap is a screening test for cervical cancer. It is not a diagnostic test and is subject to false negative and false positive results. It is most reliable when a satisfactory sample, regularly obtained, is submitted with relevant clinical findings and history, and when the Pap result is evaluated along with historic and current clinical information. Test Performed at: [place] [address] [address] [place] [id number] Alva Bartholomew [facility] SWAB OF ENDOCERVIX / Unknown 03/19/2025 03/22/2025 1:28 AM CDT us Julee Knowles MD PATHOLOGY/CYTOLOGY ORDERABL ES Final Result [facility] [phone] [place] [address] [address] [place] [id number] from Last 3 Months Insurance [facility]
[2025-05-22 11:12] VITALS: BP 140/71; PULSE 71; RESP 18; TEMP 36.6; O2SAT 100
--- NOTE | 2025-05-22 11:23 | ED_ITS ---
HPI - Female Genitourinary General Chief complaint: Urogenital-Female Stated complaint: UTI Patient presents to the [facility] with complaints continued bladder pressure and burning with urination that began about week ago. Patient was seen at this facility earlier this past week and started on Macrobid which patient has been taking as directed. Patient noted minimal relief of symptoms. Denies any history of hard to treat urinary tract infections or kidney infections. Denies fever, chills, body aches, flank pain, blood in urine vaginal concern for STDs. Patient also taking [id number] AZO tablets with minimal relief. Related Data Home Medications ?Medication ?Instructions ?Recorded ?Confirmed ?Last Taken ?Type canakinumab (PF) 150 mg/mL 150 mg subcut [id number] 02/1905/14/25 Unknown History subcutaneous solution (Ilaris (PF)) multivitamin 1 tablet PO DAILY 04/23/25 1 07/14/24 Unknown History magnesium 200 mg tablet 200 mg PO DAILY 05/14/25 Unknown History Allergies Allergy/AdvReac Type Severity Reaction Status Date / Time amoxicillin Allergy Intermediate Hives Verified 05/22/25 11:15 clavulanic acid Allergy Mild Hives Verified 05/22/25 11:15 sulfamethoxazole (From AdvReac Mild Flushing Verified 05/22/25 11:15 Septra) trimethoprim (From Septra) AdvReac Mild Flushing Verified 05/22/25 11:15 Review of Systems Constitutional: Constitutional: Reports as per HPI, Denies chills and Denies fatigue Eyes: Eyes: Reports no additional eye complaints Respiratory: Respiratory: Reports no additional respiratory complaints Gastrointestinal: Gastrointestinal: Reports no additional gastrointestinal complaints Genitourinary: Genitourinary: Reports as per HPI, Denies hematuria, Reports nocturia, Denies genital lesions, Reports dysuria, Denies pelvic pain, Denies flank pain, Denies urinary incontinence and Denies vaginal discharge Musculoskeletal: Musculoskeletal: Reports as per HPI, Denies back pain and Denies myalgias Integumentary/Breasts: Skin/Breast: Reports as per HPI, Denies erythema and Denies rash Neurologic: Reports system reviewed and no additional complaints, except as documented Psychiatric: Psychiatric: Reports no additional psychiatric complaints Endocrine: Endocrine: Reports no additional endocrine complaints Hematologic/Lymphatic: Hematologic/Lymphatic: Reports no additional hematologic/lymphatic complaints Allergic/Immunologic: Allergic/Immunologic: Reports no additional allergic/immunologic complaints PMFSH Social History Social History Smoking status: Never smoker Alcohol intake: current Alcohol use details: occasionally Substance use: never Substance use type: does not use Do You Feel Safe in your Home?: Yes Lack of Transportation: YES Lack of Food: Never True Current Housing: I Have Housing Concerned About Future Housing: No Difficulty Paying Gas/Electric Bills: No Difficulty Paying for Meds: No Currently Unemployed: No Education: Bachelor's Degree Difficulty w/ Childcare or Family Care: No Exam Const: General: healthy appearing and no acute distress Nutritional Appearance: well nourished Orientation/consciousness: patient oriented x3 Limitations: no limitations Resp: Effort & Inspection: normal respiratory effort Auscultation: clear to auscultation bilaterally Cardio: Rate: regular rate Rhythm: regular rhythm GI: Inspection: non-distended GI Palp: Yes Soft to palpation, No Tenderness to palpation present (GI), No Guarding due to palpation present (GI), No Rigid due to palpation and No Rebound tenderness present Auscultation: normal bowel sounds : General: Yes bladder normal to palpation and Yes no CVA tenderness Back/Spine/Pelvis: Back: no CVA tenderness Skin: General skin exam: normal color Rashes: no rashes Wounds: no wounds Neuro: General: patient oriented x3 Speech: normal speech Gait exam (Neuro): Normal gait present Psych: Appearance: grossly normal Mental Status: mental status grossly normal Affect: normal affect Attitude: cooperative Course Course Level of Care: Express Care Visit Vital Signs Vital signs: Vital Signs Temperature 97.9 F 05/22/25 11:12 Pulse Rate 71 05/22/25 11:12 Respiratory Rate 18 05/22/25 11:12 Blood Pressure 140/71 05/22/25 11:12 Pulse Oximetry 100 05/22/25 11:12 Oxygen Delivery Room Air 05/22/25 11:12 Temperature 97.9 F 05/22/25 11:12 Pulse Rate 71 05/22/25 11:12 Respiratory Rate 18 05/22/25 11:12 Blood Pressure 140/71 05/22/25 11:12 Pulse Oximetry 100 05/22/25 11:12 Oxygen Delivery Room Air 05/22/25 11:12 MDM - Female Genitourinary MDM Narrative Medical decision making narrative: reviewed previous visit and labs. The patient was evaluated by myself in the [facility] care. History is obtained from patient who is an independent historian and physical exam was performed. Available medical records were reviewed at this time. Exam findings show no acute concerns or changes; patient is non-toxic appearing and is in no distress. Patient is appropriate for outpatient treatment and follow-up. I have evaluated and discussed social determinants of health with the patient that could potentially impact subsequent diagnosis and treatment plans. Differential diagnosis and treatment plan were discussed with the patient. Patient agrees with discussion and after shared medical decision making agrees with plan of care. All questions were answered to the patient's satisfaction. Differential Diagnosis Differential diagnosis: Likely urinary tract infection, bacterial vaginosis, cervicitis, vaginitis and cystitis Medical Records Attestation: I reviewed the patient's medical records. Lab Data Attestation: I reviewed the patient's lab results. Discharge Plan Discharge Clinical Impression: Dysuria Patient Disposition: Home Condition: Stable Instructions: Antibiotic Form, Urinary Tract Infection in Women (ED) Additional Instructions: We will send a urine culture off to the lab; if the culture identifies an organism that the prescribed antibiotic will not treat, you will receive a phone call from an urgent care staff member and an appropriate antibiotic will be prescribed. -Your symptoms should begin to improve within a day of starting antibiotics. But you should finish all the antibiotic pills you get. Otherwise your infection might come back. -Also recommend: drink more fluid. It might help flush out germs, and it does no harm -Tylenol/ibuprofen as needed for pain -Follow-up with your primary care provider for urine recheck OR if your symptoms persist, change or worsen significantly before you can contact your personal physician then please, without delay, go to the emergency department for further evaluation. Patient Language: Upper Sorbian Prescriptions: New cephalexin 500 mg capsule 500 mg PO Q12H Qty: 14 0RF No Action Ilaris (PF) 150 mg/mL Solution 150 mg SUBCUT [id number] multivitamin Tablet 1 tablet PO DAILY magnesium 200 mg tablet 200 mg PO DAILY Follow-up/Referrals: Ivory Broussard APRN [Primary Care Provider, Internal Medicine] Time of Disposition: 11:25
[2025-05-24 11:50] LABS: EDUAAPPEAR Clear; EDUABILI Negative (Negative); EDUABLOOD Negative (Negative); EDUACOLOR1 Yellow; EDUAGLUCOSE Negative (Negative); EDUAKETONE Negative (Negative); EDUALEUKO Negative (Negative); EDUANITRATE Negative (Negative); EDUAPH 7.5; EDUAPROTEIN Negative (Negative); EDUASPGRAVITY 1.015; EDUAUROBILI 0.2
== END 2025-05-22 11:28 | disposition home or self-care (01) ==
PROVIDERS: Emergency Provider Nurse Practitioner Family; PCP Nurse Practitioner
DX: R30.0 Dysuria (principal)
CPT/HCPCS: 81003; 87086; 99213; G0463